=== PATIENT | female | born 1955 | race Caucasian/White ===

== ENCOUNTER 2020-06-15 08:31 | Outpatient (REF) | payer MEDICARE, MEDICAID, SELFPAY ==
--- NOTE | 2020-06-15 10:49 | MHC.AU.P13 ---
Adult Audiological Evaluation Date of Visit: 06/15/20 Reason for Appointment: Audiological re-evaluation to monitor the status of Ms. Molina's hearing loss. She has a history of hearing loss and hearing aid use in the right ear. She denies any changes to her hearing or medical history since her last visit. Previous Hearing Test Results: [facility] [place], 03/24/2019- Normal hearing in the left ear with the exception of a mild SNHL at 4000 Hz. Moderate to moderately severe mixed hearing loss in the right ear. Ear History: Previous Ear Surgery: Right ear- stapedectomy by Dr. Martinez ~16 years ago Medical History: Medical History: Dizziness or Unsteadiness, Measles, Mumps Medical History: Received physical therapy for vertigo ~8 years ago. Hearing Instrument History- Right Ear: Continuing Education Specialist: [employer] Model: [id number] Serial Number: [id number] Battery Size: 13 Repair Warranty: 06/28/2022 Loss and Damage Warranty: 06/28/2022 Dispensed By: [facility] Date of Fittin04/29/2019 Otoscopy: Right Ear: Unremarkable Left Ear: Unremarkable Tympanometry: Tympanometry performed due to: History of ear surgery Right Ear: Normal Middle Ear System (Type A) Left Ear: Normal Middle Ear System (Type A) Hearing Evaluation: Transducer(s) Used: Insert Earphones, Bone Conduction Method: Conventional Audiometry Stimuli Used: Pure Tones Right Ear: Description of Hearing: Moderate sensorineural hearing loss from 250-500 Hz, moderate to moderately severe mixed hearing loss from 4681-9221 Hz. Left Ear: Description of Hearing: Normal hearing from 250-3000 Hz, sloping to a mild sensorineural hearing loss at 4000 Hz, and rising to normal hearing from 4035-9158 Hz. Speech Recognition Threshold (SRT): Method Used: Monitored Live Voice Stimuli Used: Spondee Words Right Ear: 55 dBHL Left Ear: 20 dBHL Word Discrimination: Method: Recorded Lists Word Lists Used: NU-6 Right Ear: 44% at 85 dBHL with effective masking; 40% at 90 dBHL with effective masking Left Ear: 92% at 60 dBHL Comparison: Compared to the most recent evaluation: Hearing is stable. Word discrimination scores have decreased in the right ear. Recommendations: Audiological re-evaluation in one year. Hearing aid maintenance performed today. Hearing aid(s) reprogrammed with updated test results. Continue consistent use of amplification in the right ear. Recommend hearing aid maintenance in 6 months. Diagnosis: Primary Diagnosis: H90.3 Bilateral Sensorineural Hearing Loss Services Performed: Comprehensive Audiological Evaluation (CPT 34495) Tympanometry (CPT 38206) Signature: Provider: Hector Christianson, CCC-A
== END 2020-06-15 08:32 | disposition home or self-care (01) ==
LOC: HO.SH 08:31
PROVIDERS: Visit Provider Internal Medicine
DX: H90.3 Sensorineural hearing loss, bilateral (principal)
CPT/HCPCS: 92557; 92567

== ENCOUNTER 2020-06-15 09:55 | Outpatient (REF) | payer SELFPAY | END 2020-06-15 09:56 | disposition home or self-care (01) | LOC: HO.HAP 09:55 | PROVIDERS: PCP Internal Medicine; Visit Provider Internal Medicine | DX: Z46.1 Encounter for fitting and adjustment of hearing aid (principal) | CPT/HCPCS: V5266; V5267 ==

== ENCOUNTER 2021-07-03 13:51 | Outpatient (REF) | payer MEDICARE, MEDICAID, SELFPAY ==
--- NOTE | 2021-07-03 15:13 | MHC.AU.AHA ---
Adult Audiological Evaluation Date of Visit: 07/03/21 Reason for Appointment: Audiological evaluation to determine if there has been a change in Annita's hearing sensitivity. She has a known asymmetrical sensorineural hearing loss, right ear worse than left. She uses a hearing aid in the right ear only. Annita reports some difficulty hearing in background noise, such as when she's in stores. She denies any significant changes to her medical history. Previous Hearing Test Results: [facility] [place], 06/15/2020- Normal hearing in the left ear except for a mild sensorineural hearing loss notch at 4000 Hz. Moderate to moderately-severe sensorineural hearing loss in the right ear. Ear History: Previous Ear Surgery: Right ear- stapedectomy by Dr. Martinez ~16 years ago Medical History: Medical History: Dizziness or Unsteadiness, Measles, Mumps Medical History: Received physical therapy for vertigo ~9 years ago. Hearing Instrument History- Right Ear: Lab Aide: [employer] Model: [employer] [id number] Serial Number: [id number] Battery Size: 13 Repair Warranty: 06/28/2022 Loss and Damage Warranty: 06/28/2022 Dispensed By: [facility] Date of Fittin04/29/2019 Otoscopy: Right Ear: Unremarkable Left Ear: Unremarkable Tympanometry: Tympanometry performed due to: To assess integrity of the middle ear system Right Ear: Normal Middle Ear System (Type A) Left Ear: Normal Middle Ear System (Type A) Hearing Evaluation: Transducer(s) Used: Insert Earphones, Bone Conduction Method: Conventional Audiometry Stimuli Used: Pure Tones Right Ear: Description of Hearing: Moderate sloping to moderately-severe sensorineural hearing loss from 250-8000 Hz, with a slight conductive component (15 dB air-bone gap) at 4000 Hz. Left Ear: Description of Hearing: Normal hearing 250-3000 Hz, sloping to a mild sensorineural hearing loss notch at 4000 hz, and rising to normal hearing 1446-7854 Hz. Speech Recognition Threshold (SRT): Method Used: Monitored Live Voice Stimuli Used: Spondee Words Right Ear: 55 dBHL Left Ear: 25 dBHL Word Discrimination: Method: Recorded Lists Word Lists Used: NU-6 Right Ear: 28% at 80 dBHL (50 dBHL masking); 20% at 85 dBHL (55 dBHL masking); 4% at 90 dBHL (60 dBHL masking) Left Ear: 100% at 65 dBHL Most Comfortable Level (MCL): Right Ear: 85 dBHL Left Ear: 65 dBHL Comparison: Compared to the most recent evaluation: Hearing thresholds are stable. Word discrimination scores have decreased in the right ear. Compared to most recent evaluation: Word discrimination scores have decreased significantly in the right ear. In 2020, right ear discrimination scores were 44% at 85 dBHL (55 dBHL masking) and 40% at 90 dBHL (60 dBHL masking). Recommendations: Audiological re-evaluation in one year. Hearing aid maintenance performed today. Hearing aid(s) reprogrammed with updated test results. Emphasized the importance of consistent hearing aid use to keep her auditory system active and stimulated. Diagnosis: Primary Diagnosis: H90.3 Bilateral Sensorineural Hearing Loss Services Performed: Comprehensive Audiological Evaluation (CPT 78134) Tympanometry (CPT 71961) Signature: Provider: Hector Christianson, CCC-A
== END 2021-07-03 13:52 | disposition home or self-care (01) ==
LOC: HO.SH 13:51
PROVIDERS: Visit Provider Internal Medicine
DX: H90.3 Sensorineural hearing loss, bilateral (principal)
CPT/HCPCS: 92557; 92567

== ENCOUNTER 2023-11-08 10:27 | Outpatient (REF) | payer MEDICARE, MEDICAID, SELFPAY | END 2023-11-08 10:28 | disposition home or self-care (01) | LOC: HO.SH 10:27 | PROVIDERS: Visit Provider Internal Medicine | DX: Z01.118 Encounter for examination of ears and hearing with other abnormal findings (principal); H90.3 Sensorineural hearing loss, bilateral | CPT/HCPCS: 92552; 92556 ==

== ENCOUNTER 2025-03-15 13:53 | Outpatient (AMB) | payer MEDICARE, MEDICAID, SELFPAY ==
--- NOTE | 2025-03-15 14:00 | A.OFFVIS_ITS ---
Intake Vital Signs 03/15/25 14:01 Height 5 ft 1.25 in Weight 230 lb 4 oz BMI 43.1 BP 130/80 Blood Pressure Location Lt brachial Position Sitting Respiration 16 Pulse 94 Pulse Source Pulse Oximeter Temp 96.9 F Temp Source Temporal Artery Scan Pulse Oximetry (%) 97 Oxygen Delivery Method Room Air Intake Visit Reasons: annual [facility] pt, medicare wellness visit, [facility] Hand Inserter Operator Required: No Accompanied by: Self / Same As Patient Allergies misoprostol Allergy (Severe, Verified 03/15/25 14:06) sores all over Medication List - Last Reconciled 03/15/25 by Lindy Soto MD atorvastatin 10 mg PO DAILY bupropion HCl XL 300 mg PO DAILY bupropion HCl XL 150 mg PO DAILY furosemide 20 mg PO BID lamotrigine 300 mg PO BEDTIME nystatin topical paroxetine HCl 60 mg PO DAILY potassium chloride ER 10 mEq PO DAILY quetiapine ER 100 mg PO BEDTIME terazosin 1 mg PO BEDTIME topiramate 50 mg PO BEDTIME Fall Risk Assessment Fall risk assessment: 1 Fall in past year Date Fall Risk Assessed: 03/15/25 HPI HPI Comments History of Present Illness Details The patient is a 69 year old female presenting for a wellness visit. Health Risk Assessment Completed. Min Cog score 4/5. No opioid use. Situational Anxiety and Depression: The patient reports significant emotional distress related to an online relationship/encounter. This situation is reportedly affecting the patient's mental and physical health, contributing to anxiety, poor diet with nighttime eating, and a disrupted sleep schedule where the patient sleeps late to avoid the stress of the interaction. The patient sees a therapist weekly who has described the situation as an addiction. The patient has tried to disengage by closing Facebook accounts but finds it difficult to stay away. The patient is managed by a psychiatric prescriber, rPakash Oh, for depression, anxiety, and mood stabilization with multiple medications. Due to reporting daily grogginess, the prescriber recently decreased the topiramate dose from 75 mg to 50 mg. Obesity: The patient's weight is 230 pounds, and the patient expresses concern over a l ack of physical activity and poor dietary habits, including nighttime eating. Atypical Chest Pain: The patient reports two separate past incidents of chest pain. One episode occurred on the right side a couple of months ago and lasted for a couple of hours. A second episode occurred on the left side and lasted for about an hour. The patient did not seek medical evaluation for these symptoms and wonders if they might have been related to physical strain from moving a heavy bed. Arthritis: The patient has a history of arthritis and [facility], though not on a regular basis. The patient manages the pain with Tylenol and occasionally Advil a few days a week. HTN/Hyperlipidemia - on statin, furosemide bid for leg swel ling Social History: - Exercise: The patient reports minimal physical activity and is not currently participating in walking at the [facility]. - Nutrition: The patient reports a poor diet and a habit of eating late at night, which is associated with anxiety. - Sleep: The patient reports a bad habit of sleeping late, sometimes until noon or 1 p.m. - Social Support: The patient is in week ly therapy. Diagnostic Results: - Mammogram: Normal, performed in early June. Care Team Dr. Perkins- [facility] Freddie Oh- psychiatry [facility] Medical History (Updated 03/15/25 @ 14:56 by Lindy Soto MD) Chest pain Vitamin D deficiency B12 deficiency Routine medical exam Hypokalemia Depression, major, recurrent Mixed hyperlipidemia Primary hypertension Vertigo Generalized anxiety disorder Surgical History (Updated 03/15/25 @ 11:13 by Lindy Soto MD) History of ear surgery History of colonoscopy (~04/10/18) Family History (Updated 03/15/25 @ 11:14 by Lindy Soto MD) Other Alzheimer disease Coronary artery disease Family history of prostate cancer Family history of thyroid problem Osteoporosis Primary hypertension Questionnaire Medicare Wellness Checkup [age] What gender do you identify with?: female During the past 4 weeks, how much have you been bothered by emotional problems such as feeling anxious, depressed, irritable, sad or downhearted, and blue?: quite a bit During the past 4 weeks, has your physical & emotional health limited your social activities with family, friends, neighbors, or groups?: quite a bit During the past 4 weeks, how much bodily pain have you generally had?: moderate pain During the past 4 weeks, was someone available to help you if you needed & wanted help?: yes, quite a bit During the past 4 weeks, what was the hardest physical activity you could do for at least 2 minutes?: moderate Can you get to places out of walking distance without help? (For eg., can you travel alone on buses, taxis or drive your car?): Yes Can you go shopping for groceries or clothes without someone's help?: Yes Can you prepare your own meals?: Yes Can you do your housework without help?: Yes (but has back pain) Because of any health problems, do you need the help of another person with your personal care needs such as eating, bathing, dressing or getting around the house?: No Can you handle your own money without help?: Yes During the past 4 weeks, how would you rate your health in general?: fair During the past 4 weeks how have things been going for you?: good & bad parts about equal Are you having difficulties driving your car?: no Do you always fasten your seat belt when you are in a car?: yes, usually During past 4 weeks, have you been bothered by the following: never: Problems using the telephone?, seldom: Falling or dizzy when standing up, Sexual problems? and Trouble eating well?, sometimes: Teeth or denture problems? and often: Tiredness or fatigue? Have you fallen 2 or more times in the past year?: No Are you afraid of falling?: No Are you a smoker?: no During the past 4 weeks, how many drinks of wine, beer, or other alcoholic beverages did you have?: 2-5 drinks per week Do you exercise for about 20 minutes 3 or more times a week?: no, I usually do not exercise this much Have you been given information to help with the following?: no: Hazards in your house that might hurt you? and no: Keeping track of your medications? How often do you have trouble taking medicines the way you have been told to take them?: I always take medicine as prescribed How confident are you that you can control & manage most of your health problems?: somewhat confident What is your race?: White PHQ-9 Over the last 2 weeks, how often have you been bothered by any of the following problems? 1. Little interest or pleasure in doing things: several days 2. Feeling down, depressed, or hopeless: nearly every day 3. Trouble falling or staying asleep, or sleeping too much: more than half the days 4. Feeling tired or having little energy: nearly every day 5. Poor appetite or overeating: several days 6. Feeling bad about yourself - or that you are a failure or have let yourself or your family down: several days 7. Trouble concentrating on things, such as reading the newspaper or watching television: several days 8. Moving or speaking so slowly that other people could have noticed. Or the opposite - being so fidgety or restless that you have been moving around a lot more than usual: several days 9. Thoughts that you would be better off or of hurting yourself in some way: not at all Total score: 13 Depression Screening Interpretation: Positive Depression Screening Follow-up: In treatment Depression Screening Done: Yes 16807 - PHQ-9 Billing: Yes Source: Developed by Drs. Konstantin Abraham, Perlita Granados, Austin Louise and colleagues, with an educational lilly from [employer]. Thrive Questionnaire Date Thrive assessed: 03/15/25 I am a: Patient What is your living situation today?: I have a steady place to live Within the past 12 months, did the food you bought not last and you didn't have the money to get more?: Never true Within the past 12 months, did you worry whether your food would run out before you got money to buy more?: Never true Do you have trouble paying for medicines?: No Do you have trouble getting transportation to medical appointments?: No Do you have trouble paying your heating and electricity bill?: No Do you have trouble taking care of your child, family member or friend?: No Do you have trouble with day-to-day activities such as bathing, preparing meals, shopping, managing finances, etc.?: No Are you currently unemployed and looking for a job?: No Are you interested in more education?: No Please select the resources that you would like help with: Daily support Currently or been in a relationship where the following occur: No concerns reported THRIVE Score: 0 CARLOS-7 AMB Questionnaire CARLOS-7 Date CARLOS - 7 assessed: 03/15/25 Feeling nervous, anxious, or on edge: 2 = More than half the days Not being able to stop or control worryin = Nearly every day Worrying too much about different things: 3 = Nearly every day Trouble relaxin = Nearly every day Being so restless that it is hard to sit still: 1 = Several days Becoming easily annoyed or irritable: 1 = Several days Feeling afraid as if something awful might happen: 1 = Several days Total CARLOS-7 score (0-4 normal; 5-9 mild; 10-14 moderate; 15-21 severe): 14 Source: Developed by Drs. Konstantin Abraham, Perlita Granados, Austin Louise and colleagues, with an educational lilly from [employer]. AUDIT C Alcohol Use Questionnaire (AUDIT-C) 1. How often do you have a drink containing alcohol?: 2-3 times a week 2. How many drinks containing alcohol do you have on a typical day when you are drinking?: 1 or 2 3. How often do you have six or more drinks on one occasion?: Never Total Score: 3 Review of Systems Narrative Review of Systems - Constitutional: Reports fatigue and feeling groggy. - Cardiovascular: Reports past episodes of right and left-sided chest pain. - Musculoskeletal: Reports arthritis pain. - Genitourinary: Reports having to force urination(established with [facility]) - Integumentary: Denies current rashes. - Psychiatric: per hpi Physical Exam Exam Exam: Physical Exam - General: Well-appearing. - HEENT: EOMI, PERRLA --: Carotid arteries clear to auscultation bilaterally - Pulmonary: Lungs clear to auscultation bilaterally. - Cardiovascular: Normal heart sounds and rhythm, with a soft murmur noted. - Abdomen: soft, non-tender, non- distended - Extremities: trace edema noted in both legs. - Cognitive: Patient recalled 2 of 3 words after distraction; clock draw was performed correctly. Vital Signs: Last Vital Signs Temp 96.9 F 03/15/25 14: Pulse 94 03/15/25 14:01 Resp 16 03/15/25 14:01 BP 130/80 03/15/25 14:01 Pulse Ox 97 03/15/25 14:01 Oxygen Delivery Method Room Air 03/15/25 14:01 BMI result Body Mass Index 43.1 Assessment & Plan Assessment & Plan (1) Routine medical exam: Code(s): Z00.00 - Encounter for general adult medical examination without abnormal findings (2) Primary hypertension: Code(s): I10 - Essential (primary) hypertension (3) Mixed hyperlipidemia: Code(s): E78.2 - Mixed hyperlipidemia (4) Hypokalemia: Code(s): E87.6 - Hypokalemia Plan Assessment and Plan 1. Wellness and Health Maintenance The patient presents for a routine wellness visit. Plan includes obtaining fasting labs (lipids, A1c, CMP, TSH, Vit D, B12), updating immunizations (influenza, pneumococcal, and zoster), ensuring timely mammogram screening, and addressing the need for a new mushroom cutter. Follow-up is scheduled for 3 months. 2. Situational Anxiety, Depression, and Insomnia The patient's mental health is significantly impacted by a distressing online relationship, contributing to anxiety, poor sleep, and maladaptive coping mechanisms. The patient is in therapy and on a stable psychiatric medication regimen. The plan is to encourage the patient to establish a structured routine, including waking up at 7 AM, taking daytime medications on time, and continuing with therapy. Strategies to disengage from the online source of stress were discussed. 3. Obesity and Sedentary Lifestyle The patient reports a weight of 230 lbs with poor diet, nighttime eating, and lack of physical activity. The patient was educated that insurance coverage for weight loss injections requires documented lifestyle modifications, including calorie tracking (e.g., Onefeat leopoldo) and at least three hours of aerobic exercise per week. The patient was encouraged to resume physical activity and improve dietary habits. 4. Atypical Chest Pain The patient has a history of two separate, self-resolved episodes of chest pain lasting hours, which were not medically evaluated. Given the patient's risk factors including hyperlipidemia, an in-office EKG was performed. EKG showed NSR, LAFB, QT prolongation. A cardiac stress test will be considered for further workup. 5. Arthritis The patient manages arthritis pain with OTC medications. The plan is to continue Tylenol and use Advil sparingly due to potential renal effects, with continued follow-up with rheumatology as needed. 6. Chronic Conditions Management (Hyperlipidemia, Hypokalemia, Urinary Hesitancy, Edema) The patient will continue current medications including atorvastatin, potassium supplements, terazosin, and furosemide. Plan - Order fasting labs, including cholesterol, electrolytes, liver/kidney function, thyroid, vitamin D, and B12 levels. - Consider a cardiac stress test based on EKG results and further assessment. - Recommend the patient receive an influenza shot, a Prevnar 20 pneumonia shot, and the shingles vaccine series. - The patient will continue with weekly therapy for stress and anxiety. - Encourage the patient to establish a daily routine, including waking at a consistent time, getting regular exercise, and improving dietary habits. - Follow up in 3 months Discussion Notes We reviewed strategies for managing stress, such as disengaging from the online contact and establishing a structured daily routine with a consistent wake-up time to improve mood and medication adherence. Regarding the patient's interest in weight loss injections, I explained that insurance typically requires documentation of lifestyle changes like calorie tracking (eg. via the [employer] leopoldo) and regular aerobic exercise before approval. We discussed the patient's history of chest pain, and I explained the rationale for obtaining a baseline EKG today and a potential future stress test to ensure there are no underlying cardiac issues. Patient Instructions - Please schedule a follow-up appointment to see me in three months. - Go to the lab for fasting blood tests. We will check your blood sugar, cholesterol, electrolytes, vitamins, and how your liver, kidneys, and thyroid are working. - It is recommended that you get your flu shot, a pneumonia shot (Prevnar 20), and the shingles shots. Please check with your pharmacy about scheduling these. - Try to set an alarm to wake up around 7:00 AM each day to help establish a routine and improve your sleep schedule. - Take your daytime medications in the morning after you wake up. - Focus on improving your diet, avoiding late-night eating, and incorporating gentle exercise into your day. - If you are interested in weight-loss shots in the future, you will first need to show that you are tracking your calories and exercising regularly. - Important: If you ever have recurrent chest pain that lasts more than a few minutes go to the emergency room to get it checked out. - You can use Tylenol for arthritis pain. Be careful about taking too much Advil. Orders: Orders Hemoglobin A1c Today E78.2 - Mixed hyperlipidemia, E87.6 - Hypokalemia, I10 - Essential (primary) hypertension, Z00.00 - Encounter for general adult medical examination without abnormal findings Lipid Panel Today E78.2 - Mixed hyperlipidemia, E87.6 - Hypokalemia, I10 - Essential (primary) hypertension, Z00.00 - Encounter for general adult medical examination without abnormal findings Comprehensive Met. Panel Today E78.2 - Mixed hyperlipidemia, E87.6 - Hypokalemia, I10 - Essential (primary) hypertension, Z00.00 - Encounter for general adult medical examination without abnormal findings Microalbumin, Random (w Creat) Today E78.2 - Mixed hyperlipidemia, E87.6 - Hypokalemia, I10 - Essential (primary) hypertension, Z00.00 - Encounter for general adult medical examination without abnormal findings Vitamin B12 Today E53.8 - Deficiency of other specified B group vitamins, E55.9 - Vitamin D deficiency, unspecified Vitamin D 25-OH Total Today E53.8 - Deficiency of other specified B group vitamins, E55.9 - Vitamin D deficiency, unspecified NM cardiolite stress test Today R07.9 - Chest pain, unspecified Complete Blood Count Auto Diff Today E78.2 - Mixed hyperlipidemia, E87.6 - Hypokalemia, I10 - Essential (primary) hypertension, Z00.00 - Encounter for general adult medical examination without abnormal findings TSH reflex Free T4 Today E78.2 - Mixed hyperlipidemia, E87.6 - Hypokalemia, I10 - Essential (primary) hypertension, Z00.00 - Encounter for general adult medical examination without abnormal findings Magnesium Today E78.2 - Mixed hyperlipidemia, E87.6 - Hypokalemia, I10 - Essential (primary) hypertension, Z00.00 - Encounter for general adult medical examination without abnormal findings AMB EKG-In Office Today R07.9 - Chest pain, unspecified CA stress test Today R07.9 - Chest pain, unspecified Quality Reporting (2019) Fall Risk Screening ([facility] 139) Last assessed Fall Risk: 03/15/25 Fall risk assessment: 1 Fall in past year Depression/Bipolar (159/160/161/177) PHQ-9: Total score: 13 Coding Level of Care Code Medicare Subsequent (G0439) Diagnoses Routine medical exam Z00.00 Primary hypertension I10 Mixed hyperlipidemia E78.2 Hypokalemia E87.6 Additional Codes PHQ-9 - 05727 - PHQ-9 Billing: Yes ([id number]) Comment add [id number] code
[2025-03-15 14:01] VITALS: BP 130/80; PULSE 94; RESP 16; TEMP 36.1; O2SAT 97; BMI 43.1
--- OUTSIDE RECORDS SUMMARY | 2025-03-15 17:21 | XMS_ITS | Clinical Summary ---
Author Organization [employer] Address [address] [place] [address] [address] [place] [address] Care Team Providers Care Breakfast Bar Attendant Name Role Phone Unavailable Primary Care Provider Unavailabl e Social History Tobacco Use Types Packs/Day Years Used Date Smoking Tobacco: Never Assessed Comments Unknown Sex and Gender Information Value Date Recorded Sex Assigned at Female 02/12/2022 10:28 AM EDT Legal Sex Female 10:28 AM EDT Gender Identity Female 02/12/2022 10:28 AM EDT Sexual Orientation Straight 02/12/2022 10 :28 AM EDT Last Filed Vital Signs Vital Sign Reading Time Taken Comments Blood Pressure 120/86 02/03/2021 12:10 AM EDT Pulse 88 04/07/2019 12:12 AM EST Temperature - - Respiratory Rate - - Oxygen Saturation - - Inhaled Oxygen Concentration - - Weight - - Height - - Body Mass Index - - Plan of Treatment Health Maintenance Due Date Last Done Comments CT Colonography 1953 Colonoscopy 1953 Colorectal Cancer Screening 1953 Depression Screening 1953 FIT DNA/Cologuard 1953 FIT 1953 FOBT 1953 Sigmoidoscopy 1953 Alcohol/Substance Use Screening 1965 Tobacco Screening 1965 DTaP/Tdap/Td Vaccines (1 - Tdap) 1972 Mammogram 1993 Pneumococcal Vaccine: 50+ Ye ars (1 of 1 - PCV) 12/26/2003 Zoster Vaccines (1 of 2) 12/26/2003 COVID-19 Vaccine ( - 2024-2 6 season) 2024 Influenza Vaccine (#1) 2024 RSV Patients and Pa tients Aged 60 years or older (1 - 1-dose 75+ series) 2028 HIB Vaccines Aged Out No longer eligi ble based on patient's age to complete this topic HPV Vaccines Aged Out No longer eligi ble based on patient's age to complete this topic Hepatitis A Vaccines Aged Out No long er eligible based on patient's age to complete this topic Hepatitis B Vaccines Aged Out No long er eligible based on patient's age to complete this topic IPV Vaccines Aged Out No longer eligi ble based on patient's age to complete this topic Meningococcal B Vaccine Aged Out No l onger eligible based on patient's age to complete this topic Meningococcal Vaccine Aged Out No pavan manasa eligible based on patient's age to complete this topic RSV under 20 months Aged Out No longe r eligible based on patient's age to complete this topic Rotavirus Vaccines Aged Out No longer eligible based on patient's age to complete this topic
--- OUTSIDE RECORDS SUMMARY | 2025-03-15 17:21 | XMS_ITS | Encounter Summary ---
Author Organization [employer] Address [address] [place] [address] [address] [place] [address] Care Team Providers Care [facility] Chief Financial Officer Name Role Phone Unavailable Primary Care Provider Unavailabl e Encounter Details Date Type Department Care Team (Latest Contact Info) Description 02/03/2020 Abstract [facility] CONVERSIONS Dental, Provider, DDS Social History Tobacco Use Types Packs/Day Years Used Date Smoking Tobacco: Never Assessed Comments Unknown Sex and Gender Information Value Date Recorded Sex Assigned at Female 02/12/2022 10:28 AM EDT Legal Sex Female 10:28 AM EDT Gender Identity Female 02/12/2022 10:28 AM EDT Sexual Orientation Straight 02/12/2022 10 :28 AM EDT documented as of this encounter Plan of Treatment Not on file documented as of this encounter Visit Diagnoses Not on filedocumented in this encounter
--- OUTSIDE RECORDS SUMMARY | 2025-03-15 17:21 | XMS_ITS | Encounter Summary ---
Author Organization [employer] Address [address] [place] [address] [address] [place] [address] Care Team Providers Care White Hat Hacker Name Role Phone Unavailable Primary Care Provider Unavailabl e Encounter Details Date Type Department Care Team (Latest Contact Info) Description 08/25/2020 Abstract [facility] CONVERSIONS Dental, Provider, DDS Social History Tobacco [...]
== END 2025-03-15 15:16 | disposition home or self-care (01) ==
LOC: HO.HMCHD 13:53
PROVIDERS: PCP Internal Medicine; Visit Provider Internal Medicine
DX: Z00.00 Encounter for general adult medical examination without abnormal findings (principal); I10 Essential (primary) hypertension; E78.2 Mixed hyperlipidemia; E87.6 Hypokalemia

== ENCOUNTER → 2025-03-15 13:53 | Outpatient (BNVA) | payer MEDICARE, MEDICAID, SELFPAY | PROVIDERS: PCP Internal Medicine; Visit Provider Internal Medicine | DX: Z00.00 Encounter for general adult medical examination without abnormal findings (principal); I10 Essential (primary) hypertension; E78.2 Mixed hyperlipidemia; E87.6 Hypokalemia; F41.8 Other specified anxiety disorders; F32.A Depression, unspecified; G47.00 Insomnia, unspecified; E66.9 Obesity, unspecified; Z68.41 Body mass index [BMI] 40.0-44.9, adult; M19.90 Unspecified osteoarthritis, unspecified site; R07.89 Other chest pain; Z13.31 Encounter for screening for depression; Z13.39 Encounter for screening examination for other mental health and behavioral disorders | CPT/HCPCS: 96127 ==